=== PATIENT | female | born 1955 | race Caucasian/White ===

== ENCOUNTER 2022-10-24 03:54 | Day surgery (SDC) | payer OTHER, MEDICARE ==
[2022-10-21 15:39] VITALS: BMI 34.3
[2022-10-24] MEDS ORDERED: BUPIVACAINE HCL/PF 0.5% (5MG/ML) 10 ML VIAL ONE (07:08)
[2022-10-24] MEDS ORDERED: MIDAZOLAM HCL 2 MG/2 ML SINGLE DOSE VIAL ONE (07:49)
[2022-10-24] MEDS ORDERED: PROPOFOL 20 ML ONE (07:49)
[2022-10-24] MEDS ORDERED: DEXAMETHASONE SOD PHOSPHATE 4 MG/1 ML VIAL ONE (07:50)
[2022-10-24] MEDS ORDERED: ceFAZolin SODIUM 1 GM VIAL ONE (07:50)
[2022-10-24] MEDS ORDERED: LIDOCAINE HCL/PF 2% SDV 5ML VIAL ONE (07:50)
[2022-10-24] MEDS ORDERED: ceFAZolin SODIUM 1 GM VIAL IVPB ONE (08:45)
[2022-10-24] MEDS ORDERED: BUPIVACAINE HCL/PF 0.5% (5 MG/ML) 30 ML VIAL IJ ONE ×2 (08:55)
[2022-10-24] MEDS ORDERED: SUGAMMADEX SODIUM 200 MG/2 ML VIAL ONE (09:26)
[2022-10-24] MEDS ORDERED: ONDANSETRON 4 MG/2 ML VIAL IVPUSH PRN (09:49)
[2022-10-24] MEDS ORDERED: ACETAMINOPHEN 1000 MG/100 ML BAG IVPB ONE (09:49)
[2022-10-24] MEDS ORDERED: LACTATED RINGERS SOLUTION 1,000 ML IV SCH (10:00)
[2022-10-24 12:16] VITALS: RESP 18
[2022-10-24] MEDS ORDERED: oxyCODONE HCL 5 MG TABLET ONE (14:00)
[2022-10-24 16:52] VITALS: BP 130/88; PULSE 88; TEMP 98
== END 2022-10-24 17:53 | disposition home or self-care (01) ==
LOC: JASU-SURG 03:54
PROVIDERS: ATTEND Surgery
PROC: 0FT44ZZ Resection of Gallbladder, Percutaneous Endoscopic Approach (ICD-10-PCS; principal; 2022-10-24 08:00)
DX: K80.10 Calculus of gallbladder with chronic cholecystitis without obstruction (principal)
CPT/HCPCS: 88304-TC; 94760